=== PATIENT | male | born 1945 | race Caucasian/White ===

== ENCOUNTER 2016-09-22 17:47 | Emergency (ER) | payer OTHER | END 2016-09-22 18:54 | disposition home or self-care (01) | LOC: ER 17:47 | DX: S13.4XXA Sprain of ligaments of cervical spine, initial encounter (principal); K21.9 Gastro-esophageal reflux disease without esophagitis; N40.0 Benign prostatic hyperplasia without lower urinary tract symptoms; Z79.899 Other long term (current) drug therapy; V47.5XXA Car driver injured in collision with fixed or stationary object in traffic accident, initial encounter | CPT/HCPCS: 96372; J1885 ==

== ENCOUNTER 2016-10-04 12:25 | Emergency (ER) | payer OTHER | END 2016-10-04 13:56 | disposition home or self-care (01) | LOC: ER 12:25 | DX: S52.612A Displaced fracture of left ulna styloid process, initial encounter for closed fracture (principal); Z85.828 Personal history of other malignant neoplasm of skin; Z79.899 Other long term (current) drug therapy; V49.69XA Unspecified car occupant injured in collision with other motor vehicles in traffic accident, initial encounter ==